=== PATIENT | male | born 1995 | race Hispanic/Latino ===

== ENCOUNTER 2020-08-25 14:28 | Emergency (ER) | payer SELFPAY ==
[~2020-08-25] VITALS: Ht 172.7 cm; Wt 86.3 kg
[2020-08-25 15:16] LABS: HEMOGLOBIN 8.9 g/dl (14.0-18.0); IMMATURE GRANULOCYTES 0.9 % (0.0-5.0); MEAN CELL VOLUME 72.3 fL CALC (80.0-100.0); MEAN CORPUSCULAR HGB 20.7 pG CALC (26.0-32.0); MEAN CORPUSCULAR HGB CONC 28.7 g/dL CAL (32.0-36.0); NEUT# 3.4 thou/uL (1.82-7.42); RED BLOOD COUNT 4.29 mill/uL (4.70-6.10); RED CELL DISTRI WIDTH 17.1 % (11.5-15.5)
[2020-08-25 15:28] LABS: ALBUMIN 4.3 g/dL (3.2-5.0); ALKALINE PHOSPHATASE 56 u/l (38-126); ANION GAP 17 (6-22 (CALC)); BILIRUBIN, TOTAL 0.4 mg/dL (0.0-1.4); BUN 5 mg/dL (9-20); BUN/CREATININE RATIO 12 (12-20 (CALC)); CARBON DIOXIDE 23 mmol/l (22-30); CHLORIDE 104 mmol/l (95-108); CREATININE 0.5 mg/dL (0.7-1.3); GFR > 60 ML/MIN (>=60 (CALC)); GFR FOR AFR.AMER. > 60 ML/MIN (>=60 (CALC)); POTASSIUM 3.8 mmol/l (3.5-5.1); SGOT/AST 135 u/l (17-59); SODIUM 140 mmol/l (137-146); TOTAL PROTEIN 8.9 g/dL (6.3-8.2)
[2020-08-25 15:35] LABS: ACT PARTIAL THROMBO TIME 25.3 SECONDS (20.0-32.5); INTERNATIONAL NORMALIZED RATIO 1.2 RATIO (0.7-1.3); PROTHROMBIN TIME 12.1 SECONDS (9.0-12.5)
[2020-08-25 15:47] VITALS: BP 153/78
== END 2020-08-25 15:40 | disposition short-term general hospital (02) | DRG 151 ==
LOC: ED 14:28
PROC: 2Y41X5Z Packing of Nasal Region using Packing Material (ICD-10-PCS; principal; 2020-08-25)
DX: R04.0 Epistaxis (principal); D50.0 Iron deficiency anemia secondary to blood loss (chronic)